=== PATIENT | male | born 1960 | race Caucasian/White ===

== ENCOUNTER 2016-11-23 05:21 | Day surgery (SDC) | payer OTHER ==
[~2016-11-23] VITALS: Ht 177.8 cm; Wt 78.9 kg
[~2016-11-23 05:21] MED LIST: ZESTRIL40 MG PO; ZOCOR40 MG PO
[2016-11-23 06:44] VITALS: BP 170/97
[2016-11-23] MEDS ORDERED: NORCO 5/3251 TABLET PO (08:28)
[2016-11-23 09:51] VITALS: BP 140/84
[2016-11-23 10:48] VITALS: BP 135/83
== END 2016-11-23 10:55 | disposition home or self-care (01) ==
LOC: SDC 05:21
PROC: 0YU50JZ Supplement Right Inguinal Region with Synthetic Substitute, Open Approach (ICD-10-PCS; principal; 2016-11-23)
DX: K40.90 Unilateral inguinal hernia, without obstruction or gangrene, not specified as recurrent (principal); D17.6 Benign lipomatous neoplasm of spermatic cord; I10 Essential (primary) hypertension; E78.5 Hyperlipidemia, unspecified; M10.9 Gout, unspecified; E55.9 Vitamin D deficiency, unspecified; Z79.82 Long term (current) use of aspirin
CPT/HCPCS: C1781; J0690; J1170; J2250; J2405; J3010